=== PATIENT | male | born 1960 | race Caucasian/White ===

== ENCOUNTER 2017-03-16 16:24 | Outpatient (CLI) | payer OTHER ==
[2017-03-16 17:34] LABS: BASOPHILS % 0.7 (0.0-1.5); EOSINOPHILS % 1.5 % (0.0-6.8); MEAN CORPUSCULAR HEMOGLOBIN 29.3 pg (28.0-34.0); MEAN CORPUSCULAR VOLUME 89.6 fl (80.0-100.0); MONOCYTES % 10.1 % (0.0-11.0); NEUTROPHILS # 3.4 # k/uL (1.4-7.7)
[2017-03-16 18:07] LABS: eGFR (African) > 60; eGFR (Non-African) > 60
== END 2017-03-16 16:25 ==
LOC: LAB 16:24
PROVIDERS: ATTEND Surgery
DX: K40.90 Unilateral inguinal hernia, without obstruction or gangrene, not specified as recurrent (principal)
CPT/HCPCS: 36415; 80048; 85025

== ENCOUNTER 2018-06-15 16:13 | Outpatient (CLI) | payer OTHER ==
[2018-06-15 16:42] LABS: BASOPHILS % 1.5 (0.0-1.5); EOSINOPHILS % 2.5 % (0.0-6.8); MEAN CORPUSCULAR HEMOGLOBIN 31.8 pg (28.0-34.0); MONOCYTES % 7.4 % (0.0-11.0); NEUTROPHILS # 5.3 # k/uL (1.4-7.7)
[2018-06-15 17:49] LABS: eGFR (Non-African) > 60
== END 2018-06-15 16:15 ==
LOC: LAB 16:13
PROVIDERS: ATTEND Family Medicine
DX: M05.79 Rheumatoid arthritis with rheumatoid factor of multiple sites without organ or systems involvement (principal); I10 Essential (primary) hypertension
CPT/HCPCS: 36415; 80053; 80061; 85025; 85651